=== PATIENT | female | born 1955 | race Caucasian/White ===

== ENCOUNTER → 2018-05-22 | Outpatient (CLI) | payer MEDICARE ==
[~2018-05-22] MED LIST: IOHEXOL-350 75 ML VIAL IV ONE
== END | disposition home or self-care (01) ==
LOC: EDSEX 09:54 → RAH 09:54
PROVIDERS: ATTEND Internal Medicine Gastroenterology
DX: D37.5 Neoplasm of uncertain behavior of rectum (principal); N85.4 Malposition of uterus
CPT/HCPCS: 74178; Q9967